=== PATIENT | female | born 1985 | race Two or more races ===

== ENCOUNTER 2020-12-26 16:24 | Emergency (ER) | payer OTHER ==
[~2020-12-26] VITALS: Ht 170.2 cm; Wt 80.7 kg
[2020-12-26] MEDS ORDERED: LEVOTHYROXINE25 MCG PO (16:29)
== END 2020-12-26 19:52 | disposition home or self-care (01) ==
LOC: ER 16:24
DX: O20.0 Threatened abortion (principal)

== ENCOUNTER 2021-01-22 10:55 | Emergency (ER) | payer OTHER ==
[~2021-01-22] VITALS: Ht 170.2 cm; Wt 79.4 kg
[~2021-01-22 10:55] MED LIST: LEVOTHYROXINE25 MCG PO
== END 2021-01-22 18:00 | disposition home or self-care (01) ==
LOC: ER 10:55
DX: O26.891 Other specified pregnancy related conditions, first trimester (principal); O26.851 Spotting complicating pregnancy, first trimester; O36.80X1 Pregnancy with inconclusive fetal viability, fetus 1; Z34.01 Encounter for supervision of normal first pregnancy, first trimester

== ENCOUNTER 2021-01-29 17:51 | Emergency (ER) | payer OTHER ==
[~2021-01-29] VITALS: Ht 167.6 cm; Wt 78.5 kg
== END 2021-01-29 21:09 | disposition home or self-care (01) ==
LOC: ER 17:51
DX: O20.9 Hemorrhage in early pregnancy, unspecified (principal); Z3A.13 13 weeks gestation of pregnancy